=== PATIENT | female | born 1985 | race Caucasian/White ===

== ENCOUNTER 2020-07-06 17:36 | Observation (INO) | payer MEDICAID, SELFPAY ==
[2020-07-06 17:37] VITALS: BP 125/68; PULSE 80; RESP 16; TEMP 36.4; O2SAT 99; BMI 30.9
--- NOTE | 2020-07-06 18:10 | ED.DCSUM_ITS ---
History of Present Illness Chief Complaint: Substance Abuse Informant: Patient Narrative: Patient presents the emergency department asking for detox from amphetamines and fentanyl. Patient states that several years ago her parents . She was with her former significant other with whom she had 3 children with at the time and said they both were using amphetamines per her. She states that during this period she ended up having an affair. He stopped using and she continued to use. She states that he got custody of the children and she is only seeing the children one time in 16 months. She has been a little over 100 days sober but when she was granted visitation she was not allowed to see them so she started using again. She is from the [facility] and has been discussing rehab with a provider down there. Past Medical History - Allergies and Home Meds Allergies/Adverse Reactions: Allergies No Known Allergies Allergy (Verified 07/06/20 17:37) Primary Care Physician: Hugo Doctor,Out of [NON-STAFF] - Review of Systems General: Denies: Chills, Fever, Sweats Eyes: Denies: Visual changes - bilaterally, Diplopia ENT: Denies: Rhinorrhea, Sore throat Cardiovascular: Denies: Chest pain, Palpitations Respiratory: Denies: Dyspnea, Cough, Dyspnea on exertion Gastrointestinal: Reports: Nausea. Denies: Abdominal pain, Vomiting, Diarrhea, Melena, Hematochezia Genitourinary: Denies: Dysuria, Hematuria, Frequency Musculoskeletal: Denies: Back pain, Extremity Pain Skin: Denies: Rash, Wounds Neurological: Reports: Headache. Denies: Weakness, Numbness Psych: Reports: Depression, Anxiety. Denies: Suicidal thoughts, Suicidal ideations Physical Exam Vital Signs/Narrative: Vital Signs Temp Pulse Resp BP Pulse Ox 07/06/20 17:37 97.5 F L 80 16 125/68 H 99 Inital Vital Signs reviewed: Yes General: Well nourished, Well developed, No Acute Distress Head: Normocephalic, Atraumatic Eyes: Perrl, EOMI ENT: Moist mucous membranes, No rhinorrhea Neck: Supple, Nontender Cardiovascular: Regular rate, Regular rhythm, No murmurs Respiratory: No distress, CTA bilaterally, Chest nontender Abdomen: Soft, Nontender, Nondistended, Normal bowel sounds Back: Nontender, Normal Inspection Extremities: Nontender, No edema Skin: Normal color, No rash Neurological: Alert, Oriented x3, Cranial nerves II-XII grossly intact, Normal Strength, Normal Sensation Psychological: Depressed, - - Anxious about going to rehab Diagnostic/Tx/Re-eval Laboratory Last Values WBC 5.1 K/mm3 (4.4-11.0) 07/06/20 19:00 RBC 4.41 M/mm3 (4.2-5.4) 07/06/20 19:00 Hgb 12.9 g/dL (12.0-15.0) 07/06/20 19:00 Hct 41.0 % (37-47) 07/06/20 19:00 MCV 93.0 fL (81-99) 07/06/20 19:00 MCH 29.3 pg (27.0-32.0) 07/06/20 19:00 MCHC 31.5 g/dL (32-36) L 07/06/20 19:00 RDW Std Deviation 44.9 fl (35.1-43.9) H 07/06/20 19:00 RDW Coeff of Roz 13.1 % (11.6-14.6) 07/06/20 19:00 Plt Count 227 K/mm3 (150-450) 07/06/20 19:00 MPV 10.8 fl (6.2-12.0) 07/06/20 19:00 Immature Gran % (Auto) 0.200 % (0.0-0.9) 07/06/20 19:00 Neut % (Auto) 54.1 % (47-70) 07/06/20 19:00 Lymph % (Auto) 32.7 % (19-41) 07/06/20 19:00 [place] % (Auto) 10.4 % (0-10) H 07/06/20 19:00 Eos % (Auto) 2.0 % (0-5) 07/06/20 19:00 Baso % (Auto) 0.6 % (0-1) 07/06/20 19:00 Absolute Neuts (auto) 2.8 X10^3/uL (2.0-7.7) 07/06/20 19:00 Absolute Lymphs (auto) 1.66 X10^3/uL (0.83-4.51) 07/06/20 19:00 Nucleated RBC % 0 % (0-5) 07/06/20 19:00 PT 12.7 SECONDS (11.7-14.9) 07/06/20 19:00 INR 1.0 07/06/20 19:00 Sodium 143 mmol/L (136-145) 07/06/20 19:00 Potassium 3.7 mmol/L (3.5-5.1) 07/06/20 19:00 Chloride 111 mmol/L (98-107) H 07/06/20 19:00 Carbon Dioxide 30.0 mmol/L (21.0-32.0) 07/06/20 19:00 Anion Gap 2 (5-15) L 07/06/20 19:00 BUN 12 mg/dL (7-18) 07/06/20 19:00 Creatinine 0.68 mg/dL (0.55-1.02) 07/06/20 19:00 Estim Creat Clear Calc 97.81 ml/min 07/06/20 19:00 Est GFR (MDRD) Af Amer 125 mL/min (>60) 07/06/20 19:00 Est GFR (MDRD) Non-Af 103 mL/min (>60) 07/06/20 19:00 BUN/Creatinine Ratio 17.6 RATIO (10-20) 07/06/20 19:00 Glucose 103 mg/dL (74-106) 07/06/20 19:00 Calcium 8.3 mg/dL (8.5-10.1) L 07/06/20 19:00 Total Bilirubin 0.40 mg/dL (0.20-1.00) 07/06/20 19:00 AST 104 U/L (15-37) H 07/06/20 19:00 ALT 158 U/L (13-56) H 07/06/20 19:00 Alkaline Phosphatase 91 U/L (45-117) 07/06/20 19:00 Total Protein 7.8 g/dL (6.4-8.2) 07/06/20 19:00 Albumin 3.1 g/dL (3.2-5.0) L 07/06/20 19:00 Globulin 4.7 g/dL (2.2-4.2) H 07/06/20 19:00 Albumin/Globulin Ratio 0.7 RATIO (0.9-2.4) L 07/06/20 19:00 Serum , Qual NEGATIVE Negative 07/06/20 19:00 Urine Opiates Screen NEGATIVE (< 300 ng/mL) 07/06/20 19:20 Urine Methadone Screen NEGATIVE (< 300 ng/mL) 07/06/20 19:20 Ur Barbiturates Screen NEGATIVE (< 200 ng/mL) 07/06/20 19:20 Ur Phencyclidine Scrn NEGATIVE (< 25 ng/mL) 07/06/20 19:20 Ur Amphetamines Screen POSITIVE (<1000 ng/mL) H 07/06/20 19:20 U Methamphetamin-MDMA NEGATIVE (< 500 ng/mL) 07/06/20 19:20 U Benzodiazepines Scrn NEGATIVE (< 200 ng/mL) 07/06/20 19:20 Urine Cocaine Screen NEGATIVE (< 300 ng/mL) 07/06/20 19:20 U Cannabinoids Screen NEGATIVE (< 50 ng/mL) 07/06/20 19:20 Ur Drug Screen Comment 07/06/20 19:20 Ethyl Alcohol < 3.0 mg/dL 07/06/20 19:00 - Medical Decision Making Patient was medically cleared for detox. Dr. Valdez will be down to admit the patient ED Disposition - Plan for ED Patient: Disposition: Acute Care [facility] Diagnosis: Opiate abuse, continuous, Methamphetamine abuse Referrals: [facility] Doctor,Out of [NON-STAFF] -
[2020-07-06 19:34] VITALS: BP 117/68; PULSE 82; RESP 16; TEMP 36.4; O2SAT 98
[2020-07-06] MEDS: Acetaminophen 500 MG Tablet 1000 MG PO (19:35)
[2020-07-06] MEDS: Ondansetron ODT 4 MG Tablet PO (19:35)
[2020-07-06 19:37] LABS: Absolute Lymphocyte Count 1.66 X10^3/uL (0.83-4.51); Absolute Neutrophil Count 2.8 X10^3/uL (2.0-7.7); Basophil# 0.03 X10^3/uL; Basophil% 0.6 % (0-1); Hemoglobin 12.9 g/dL (12.0-15.0); Lymphocyte # 1.66 X10^3/ul (4.0); Lymphocyte % 32.7 % (19-41); Mean Corp Hgb Conc 31.5 g/dL (32-36); Mean Corpuscular Hgb 29.3 pg (27.0-32.0); Mean Platelet Vol. 10.8 fl (6.2-12.0); Monocyte# 0.53 X10^3/uL; Monocyte% 10.4 % (0-10); NRBC Flagged by Analyzer 0 % (0-5); Neutrophil # 2.75 X10^3/uL (2.7-7.7); Neutrophil % 54.1 % (47-70); Platelet Count 227 K/mm3 (150-450); RBC Distribution Width CV 13.1 % (11.6-14.6); RBC Distribution Width SD 44.9 fl (35.1-43.9); Red Blood Count 4.41 M/mm3 (4.2-5.4); White Blood Count 5.1 K/mm3 (4.4-11.0)
[2020-07-06 19:39] LABS: Internal QC Validated? YES +Cl - CLEAR BKGD
[2020-07-06 19:40] LABS: Pregnancy, Serum, hCG Quali. NEGATIVE Negative; Prothrombin Time (Protime)PT. 12.7 SECONDS (11.7-14.9)
[2020-07-06 19:41] LABS: Alcohol, Blood (Medical)-Serum < 3.0 mg/dL
[2020-07-06 19:41] LABS: Amphetamine Urine VISTA POSITIVE (<1000 ng/mL); Barbiturate Urine VISTA NEGATIVE (< 200 ng/mL); Benzodiazepine Urine VISTA NEGATIVE (< 200 ng/mL); Cocaine Urine VISTA NEGATIVE (< 300 ng/mL); Ecstacy Urine VISTA NEGATIVE (< 500 ng/mL); Methadone Urine VISTA NEGATIVE (< 300 ng/mL); PCP Urine VISTA NEGATIVE (< 25 ng/mL); THC Urine VISTA NEGATIVE (< 50 ng/mL); Vista UDS pH Range 6
[2020-07-06 19:42] LABS: ALB/GLOB Ratio 0.7 RATIO (0.9-2.4); AST(SGOT) 104 U/L (15-37); Alanine Aminotransfer ALT/SGPT 158 U/L (13-56); Albumin, Serum 3.1 g/dL (3.2-5.0); Alkaline Phosphatase 91 U/L (45-117); Anion Gap 2 (5-15); BUN 12 mg/dL (7-18); BUN/Creat Ratio 17.6 RATIO (10-20); Calcium,Total 8.3 mg/dL (8.5-10.1); Chloride 111 mmol/L (98-107); Creatinine, Serum 0.68 mg/dL (0.55-1.02); EST Glomerular Filtration Rate 103 mL/min (>60); Est Glom Filt Rate - Afr Amer 125 mL/min (>60); Estimated Creatinine Clearance 97.81 ml/min; Globulin 4.7 g/dL (2.2-4.2); Glucose 103 mg/dL (74-106); Potassium 3.7 mmol/L (3.5-5.1); Protein, Total 7.8 g/dL (6.4-8.2); Sodium Level 143 mmol/L (136-145)
--- NOTE | 2020-07-06 19:56 | PCM.HP.STD ---
Problem List (1) Opiate withdrawal Status: Acute (2) Anxiety and depression Status: Chronic (3) Obesity (BMI 30.0-34.9) Status: Chronic (4) Elevated liver enzymes Status: Chronic (5) Opiate abuse, continuous Status: Chronic (6) Methamphetamine abuse Status: Chronic History of Present Illness Date of Admission: 07/06/20 Chief Complaint: Acute Opiate Withdrawal The patient is a 35 y/o F w/ PMHx: Polysubstance abuse (Heroine, Fentanyl, Methamphetamines only but in the past other substances, IV drug abuse x1 year, indicates that she may have hepatitis C or suspects that she may), Anxiety and Depression, Obesity who presents to the [facility] ED on 07/06/20 w/ noted opiate withdrawal onset starting on day of ED presentation following last dose the day prior with abdominal pain/cramping with associated nausea and dry heaves, generalized body aches and pains, rhinorrhea, headaches, generalized chills and restlessness coupled with fatigue, mild diaphoresis. Patient interested in attaining clean status. Patient has been using amphetamines and opiates for several years and notes in the past she was using with her significant other with whom she has 3 children however he became clean and currently has custody. She noted she had been sober for approximately 100 days and was granted visitation but unfortunately did not get this visit per her report and decided to use again. She is interested in rehab and ongoing clean status to be able to see her children on a regular basis. Work-up in the ED included T 97.5, heart rate 80, BP 125/68, respiratory rate 16, 99% on room air, unremarkable CBC, unremarkable coags, CMP with chloride 111, AST/ALT 104/158, alk phos 91, serum negative, urine drug screen with positive amphetamines, ethyl alcohol level less than 3. In the ED patient ministered Zofran and Tylenol therapy. Past Medical History Past Medical History (Chronic Problems): Chronic Problems Opiate abuse, continuous (Chronic) Methamphetamine abuse (Chronic) Anxiety and depression (Chronic) Obesity (BMI 30.0-34.9) (Chronic) Elevated liver enzymes (Chronic) Allergies No Known Allergies Allergy (Verified 07/06/20 17:37) Home Medications: Ambulatory Orders Medication Instructions Recorded NK 07/06/20 Surgical History: cholecystectomy, - - History of ectopic with single fallopian tube removal. Psychiatric History: Anxiety, Depression [employer] History: ectopic Lives: Alone Smoking Status: Never smoker Tobacco Use: Non-smoker Alcohol: None Drugs: Cocaine, - - Fentanyl, heroine, meth currently although primarily fentanyl and methamphetamines noting fentanyl daily at least 2 bags of unclear specific amount and methamphetamine intermittently. She notes she has been doing IV drugs for at least 1 year. - *Family History Maternal History Items: - - Patient notes that her mother passed secondary to possible overdose unclear if whether intentional or not but history of depression. Patient indicates that her mother had several issues with her father. Paternal History Items: Cancer - Patient's father passed secondary to rare skin cancer she notes. Review of Systems Constitutional: Reports: Anorexia, Chills, Malaise, Weakness, Fatigue. Denies: Fever, Weight Change HEENT: Reports: Head Aches, Nasal Congestion, Sinus Congestion. Denies: Sinus Drainage Cardiovascular: Denies: Chest Pain, Palpitations Respiratory: Denies: Cough, Shortness of Breath, Shortness of breath at rest, Shortness of breath upon exertion, Sputum production Gastrointestinal: Reports: Abdominal Pain, Nausea, Vomiting. Denies: Constipation, Diarrhea Genitourinary: Denies: Dysuria Musculoskeletal: Denies: Joint Pain, Joint Tenderness Skin: Reports: Skin Changes. Denies: Rash, Wounds Neurological: Denies: Numbness, Tingling, Focal weakness Psychiatric: Reports: Anxiety, Depression. Denies: Homicidal Ideations, Suicidal Ideations Endocrine: Reports: Heat/ Cold Intolerance Hematologic/ Lymphatic: Denies: Easy Bruising, Easy Bleeding VTE Information - Inpt Only VTE Present on Admission: No VTE Mechan Device Prophylaxis: None VTE Pharm Prophylaxis ordered?: No Reason prophylaxis not ordered:: Treatment Not Indicated Patient Problems: Active and Suspected Problems Opiate withdrawal (Acute) Subjective: Patient seated upright in the ED bed, tearful with discussions, notes ongoing headache, nausea and abdominal cramping currently. Objective: Physical Examination: General: awake, alert, oriented x 3 and cooperative, seated upright in the ED bed, fatigued, mildly restless, tearful. Skin: normal color, turgor, no icterus, cyanosis except notable diffuse extremity and facial picks regions, no infection apparent. HEENT: AT/NC, EOMI, PERRLA, dry MM, no carotid bruits or JVD noted. Lungs: CTA bilaterally, moderate effort, mild decrease BL bases, no rales, ronchi or wheezing. Heart: Regular rate and rhythm; no gallop, rub audible. Abdomen: soft, mild generalized discomfort to palpation, ND, normal BS, no HSM. Extremities: no cyanosis, clubbing, or edema. Neurological: patient awake, alert, oriented x 3; cognitive function intact; pupils equally reactive to light and accomodation; cranial nerves II-XII grossly normal, moving all 4 extremities, no focal deficits, strength mildly to moderately globally Yvette secondary to acute presentation with withdrawal. Psychiatric: affect appears fatigued, yawning occasionally, restless, tearful with evidence of anxiety and depression. - Physical Exam Vitals/I&O's: Vital Signs Temp Pulse Resp BP Pulse Ox 97.6 F L 82 16 117/68 98 07/06/20 19:34 07/06/20 19:34 07/06/20 19:34 07/06/20 19:34 07/06/20 19:34 Oxygen Delivery Method Room Air Weight: 180 lb Body Mass Index (BMI) 30.9 Laboratory Results 07/06/20 19:00: WBC 5.1, RBC 4.41, Hgb 12.9, Hct 41.0, MCV 93.0, MCH 29.3, MCHC 31.5 L, RDW Std Deviation 44.9 H, RDW Coeff of Roz 13.1, Plt Count 227, MPV 10.8, Immature Gran % (Auto) 0.200, Neut % (Auto) 54.1, Lymph % (Auto) 32.7, [place] % (Auto) 10.4 H, Eos % (Auto) 2.0, Baso % (Auto) 0.6, Absolute Neuts (auto) 2.8, Absolute Lymphs (auto) 1.66, Nucleated RBC % 0 07/06/20 19:00: PT 12.7, INR 1.0 07/06/20 19:00: Sodium 143, Potassium 3.7, Chloride 111 H, Carbon Dioxide 30.0, Anion Gap 2 L, BUN 12, Creatinine 0.68, Estim Creat Clear Calc 97.81, Est GFR (MDRD) Af Amer 125, Est GFR (MDRD) Non-Af 103, BUN/Creatinine Ratio 17.6, Glucose 103, Calcium 8.3 L, Total Bilirubin 0.40, AST 104 H, ALT 158 H, Alkaline Phosphatase 91, Total Protein 7.8, Albumin 3.1 L, Globulin 4.7 H, Albumin/Globulin Ratio 0.7 L 07/06/20 19:00: Ethyl Alcohol < 3.0 07/06/20 19:00: Serum , Qual NEGATIVE 07/06/20 19:20: Urine Opiates Screen NEGATIVE, Urine Methadone Screen NEGATIVE, Ur Barbiturates Screen NEGATIVE, Ur Phencyclidine Scrn NEGATIVE, Ur Amphetamines Screen POSITIVE H, U Methamphetamin-MDMA NEGATIVE, U Benzodiazepines Scrn NEGATIVE, Urine Cocaine Screen NEGATIVE, U Cannabinoids Screen NEGATIVE, Ur Drug Screen Comment Assessment/Plan All Active Problems Opiate withdrawal (Acute) The patient is a 35 y/o F w/ PMHx: Polysubstance abuse (Heroine, Fentanyl, Methamphetamines), Anxiety and Depression, Obesity who presents to the [facility] ED on 07/06/20 w/ noted opiate withdrawal onset starting on day of ED presentation following last dose the day prior. 1. Acute Opiate Withdrawal: Will admit to [facility], routine labs including CBC, CMP, urine for drug screen post testing obtained in the ED with likely suspected chronic liver function elevations, will initiate and continue on protocol with tapering course of Subutex, as needed tylenol, ibuprofen, bowel regimen, gabapentin, Bentyl, Vistaril, methocarbamol, clonidine, PRN nightly trazodone for insomnia, IV fluids, IV antiemetics. Once patient clinically improved and completion of taper nearing will plan consultation with case management for transition to next level of rehabilitation care. From review of this patient and discussion she would benefit from residential treatment following inpatient withdrawal treatment. 2. Polysubstance Abuse, noted liver function elevations: We will obtain HIV and hepatitis panel especially given patient intent on improving her healthcare status. If she is hepatitis positive unfortunately she would not be a candidate for treatment until she has been clean and sober for at least 6 months and attends meetings as well as ongoing counseling with negative drug screening. Encouraged PCP establishment and follow-up. 3. Anxiety and depression: Likely contributing to her presentation, would likely benefit greatly from aggressive therapy and possible medication considerations. Case management consulted for aggressive discharge planning. 4. Obesity: Weight loss and lifestyle changes encouraged. 5. DVT prophylaxis: Low risk, encourage ambulation. Inpatient E&M: 03554 Init Hosp L3
[2020-07-06 20:09] VITALS: BMI 30.9
--- NOTE | 2020-07-06 20:21 | CM.ED ---
Social Work Consult: Substance Abuse Informant: Dr. Her Met with patient in room. Introduced self and social media marketing manager role. Patient agreeable to speaking with this social media marketing manager. Patient is seeking medical management of withdrawal symptoms. Patient reports substance of choice is Fentanyl, Heroine, and Meth. Patient reports to have been in recovery before and sober living really helped me. Patient reports to have three children that patient does not have custody of and is working towards being able to have visitations. Patient verbally agreeing to [facility] contract. Patient questions answered. Telephone call to Juan Pablo Andre. Juan Pablo updated on patient admission tomorrow. Juan Pablo plans to see patient tomorrow. Christine DODSON, MALCOM
[2020-07-06 20:36] VITALS: BP 114/72; PULSE 72; RESP 16; TEMP 36.7; O2SAT 98
[2020-07-06 21:05] VITALS: BMI 31.8
[2020-07-06 21:08] VITALS: BP 118/59; PULSE 72; RESP 16; TEMP 37; O2SAT 99
[2020-07-06] MEDS: Lactated Ringers 1,000 ML 125 ML IV (21:34)
[2020-07-06] MEDS: 0.9% Saline Lock 10 ML Syringe IV (21:35)
[2020-07-06 22:05] VITALS: O2SAT 99
[2020-07-06 22:07] LABS: HIV - WCH Non-Reactive (Nonreactive)
[2020-07-06] MEDS: Famotidine 20 MG Tablet PO (22:32)
[2020-07-07 00:42] VITALS: BP 121/52; PULSE 62; RESP 16; TEMP 36.4; O2SAT 98
[2020-07-07 02:42] LABS: Hepatitis B Surface Antibody Reactive; Hepatitis B Surface Antigen Non-Reactive (Nonreactive)
[2020-07-07 02:52] LABS: Hepatitis C Antibody Preliminary Reactive (Nonreactive)
[2020-07-07 03:44] VITALS: BP 103/52; PULSE 67; RESP 16; TEMP 36.5; O2SAT 100
[2020-07-07] MEDS: Buprenorphine HCl 2 MG TAB.SUBL SL ×3 (03:45→18:49)
--- NOTE | 2020-07-07 07:20 | PCM.PN.HOSP ---
Patient Problems: Active and Suspected Problems Opiate withdrawal (Acute) Subjective: Patient seen and examined. She has been managed for acute opioid withdrawal. She complained of some tremors and tingling, but denied any other complaints. Review of systems otherwise negative. She has remained hemodynamically stable. Vitals/I&O's: Vital Signs Temp Pulse Resp BP Pulse Ox 97.7 F L 67 16 103/52 L 100 07/07/20 03:44 07/07/20 03:44 07/07/20 03:44 07/07/20 03:44 07/07/20 03:44 Oxygen Delivery Method Room Air Weight: 185 lb 10.067 oz Body Mass Index (BMI) 31.8 Intake and Output for Last 24 Hours 07/05/20 07/06/20 07/07/20 23:59 23:59 23:59 Intake Total 355 / 355 1800 / 1800 Balance 355 / 355 1800 / 1800 General: Alert, Oriented x3, Cooperative HEENT: Atraumatic, PERRLA, EOMI, Normocephalic Oral: Moist Mucosa Neck: Supple, No JVD, Negative Carotid Bruits Lungs: Clear to auscultation, Normal air movement Cardiovascular: Regular rate, Regular Rhythm, Normal S1, Normal S2, No murmurs Abdomen: Bowel Sounds Present, Soft, Non Tender, Non-Distended, No Hepato-splenomegaly Extremities: No clubbing, No cyanosis, No edema, Capillary Refill Less than 3 Seconds Skin: No rashes, No breakdown Musculoskeletal: No Tenderness to Palpation of Joints or Extremities Lymphatic: No Cervical, Supraclavicular, or Inguinal Adenopathy Neurological: Cranial nerves II-XII grossly intact, Neuro grossly intact, Motor Exam 5/5 strength throughout Psych/Mental Status: Normal Affect, Appropriate, Alert and oriented to time, place, person, mood and affect Laboratory Results 07/06/20 19:00: WBC 5.1, RBC 4.41, Hgb 12.9, Hct 41.0, MCV 93.0, MCH 29.3, MCHC 31.5 L, RDW Std Deviation 44.9 H, RDW Coeff of Roz 13.1, Plt Count 227, MPV 10.8, Immature Gran % (Auto) 0.200, Neut % (Auto) 54.1, Lymph % (Auto) 32.7, [place] % (Auto) 10.4 H, Eos % (Auto) 2.0, Baso % (Auto) 0.6, Absolute Neuts (auto) 2.8, Absolute Lymphs (auto) 1.66, Nucleated RBC % 0 07/06/20 19:00: PT 12.7, INR 1.0 07/06/20 19:00: Sodium 143, Potassium 3.7, Chloride 111 H, Carbon Dioxide 30.0, Anion Gap 2 L, BUN 12, Creatinine 0.68, Estim Creat Clear Calc 97.81, Est GFR (MDRD) Af Amer 125, Est GFR (MDRD) Non-Af 103, BUN/Creatinine Ratio 17.6, Glucose 103, Calcium 8.3 L, Total Bilirubin 0.40, AST 104 H, ALT 158 H, Alkaline Phosphatase 91, Total Protein 7.8, Albumin 3.1 L, Globulin 4.7 H, Albumin/Globulin Ratio 0.7 L 07/06/20 19:00: Ethyl Alcohol < 3.0 07/06/20 19:00: Serum , Qual NEGATIVE 07/06/20 19:00: Hep Bs Antigen Non-Reactive, Hep Bs Antibody Reactive, Hepatitis C Antibody Preliminary Reactive, HIV 1&2 Antibody Non-Reactive 07/06/20 19:20: Urine Opiates Screen NEGATIVE, Urine Methadone Screen NEGATIVE, Ur Barbiturates Screen NEGATIVE, Ur Phencyclidine Scrn NEGATIVE, Ur Amphetamines Screen POSITIVE H, U Methamphetamin-MDMA NEGATIVE, U Benzodiazepines Scrn NEGATIVE, Urine Cocaine Screen NEGATIVE, U Cannabinoids Screen NEGATIVE, Ur Drug Screen Comment 07/07/20 05:55: Hepatitis A IgM Ab Pending 07/07/20 05:55: Sodium Pending, Potassium Pending, Chloride Pending, Carbon Dioxide Pending, Anion Gap Pending, BUN Pending, Creatinine Pending, Est GFR (MDRD) Af Amer Pending, Est GFR (MDRD) Non-Af Pending, BUN/Creatinine Ratio Pending, Glucose Pending, Calcium Pending, Total Bilirubin Pending, AST Pending, ALT Pending, Alkaline Phosphatase Pending, Total Protein Pending, Albumin Pending Current Medications Acetaminophen (Tylenol) 500 mg PO Q4H PRN PRN PRN Reason: Temp > 100.4 F Al Hydroxide/Mg Hydroxide (Mylanta Ii) 30 ml PO Q6H PRN PRN PRN Reason: dyspesia Albuterol Sulfate (Ventolin Aerosols) 2.5 mg INHALATION Q2H PRN PRN PRN Reason: Dyspnea, wheezing Bisacodyl (Dulcolax) 10 mg RECTAL DAILY PRN PRN Reason: Constipation Buprenorphine HCl (Buprenorphine Hcl) 4 mg SL Q8H [facility]; Taper Stop: 07/10/20 03:29 Last Admin: 07/07/20 03:45 Dose: 4 mg Documented by: Clonidine (Catapres) 0.1 mg PO Q8H PRN PRN PRN Reason: RESTLESSNESS Dicyclomine HCl (Bentyl) 20 mg PO Q6H PRN PRN PRN Reason: Abdominal Discomfort Famotidine (Pepcid) 20 mg PO BID [facility] Last Admin: 07/06/20 22:32 Dose: 20 mg Documented by: Gabapentin (Neurontin) 300 mg PO Q8H PRN PRN PRN Reason: moderate to severe anxiety Hydralazine HCl (Apresoline Iv) 10 mg IV Q4H PRN PRN PRN Reason: SBP > 160 Hydroxyzine Pamoate (Vistaril Pamoate Capsule) 50 mg PO Q6H PRN PRN PRN Reason: mild anxiety Ibuprofen (Motrin) 600 mg PO Q8H PRN PRN PRN Reason: Pain Score 1-10/10 Loperamide HCl (Imodium) 2 mg PO Q4H PRN PRN PRN Reason: LOOSE STOOLS Methocarbamol (Methocarbamol) 1,500 mg PO Q6H PRN PRN PRN Reason: MUSCLE SPASM Ondansetron HCl (Zofran Odt) 8 mg PO Q8H PRN PRN PRN Reason: NAUSEA Senna (Senokot) 2 tablet PO QHS PRN PRN PRN Reason: Constipation Sodium Chloride () 10 - 40 ml IV UD PRN PRN Reason: SALINE FLUSH Last Admin: 07/06/20 21:35 Dose: 10 ml Documented by: Trazodone HCl (Desyrel) 100 mg PO QHS PRN PRN PRN Reason: INSOMNIA STROKE Vital Signs/Narrative: Vital Signs Temp Pulse Resp BP Pulse Ox 07/07/20 03:44 97.7 F L 67 16 103/52 L 100 Medical Necessity - Tobacco Use Smoking Status: Never smoker Tobacco Use: Non-smoker Assessment/Plan All Active Problems Opiate withdrawal (Acute) #Acute opioid withdrawal on opioid withdrawal protocol with buprenorphine monitor CINA score #Elevated liver enzymes AST and ALT were mildly elevated. hepatitis screen positive for hep C antibodies will need follow up with gastroenterology on outpatient basis # Anxiey and depression: self reported, not on any meds. will need follow up with PCP on outpatient basis. DVT prophylaxis: low risk, encouraged to ambulate Inpatient E&M: 46225 Subs Hosp L2
[2020-07-07 07:36] VITALS: BP 116/66; PULSE 84; RESP 14; TEMP 36.6; O2SAT 98
[2020-07-07] MEDS: hydrOXYzine PAM 25 MG Capsule 50 MG PO ×2 (07:42→15:20)
[2020-07-07] MEDS: Famotidine 20 MG Tablet PO ×2 (07:42→21:04)
[2020-07-07] MEDS: Methocarbamol 750 MG Tablet 1500 MG PO ×2 (07:42→15:20)
[2020-07-07 08:02] LABS: ALB/GLOB Ratio 0.7 RATIO (0.9-2.4); AST(SGOT) 89 U/L (15-37); Alanine Aminotransfer ALT/SGPT 139 U/L (13-56); Albumin, Serum 2.8 g/dL (3.2-5.0); Alkaline Phosphatase 96 U/L (45-117); Anion Gap 6 (5-15); BUN 11 mg/dL (7-18); BUN/Creat Ratio 18.9 RATIO (10-20); Chloride 106 mmol/L (98-107); Creatinine, Serum 0.58 mg/dL (0.55-1.02); EST Glomerular Filtration Rate 124 mL/min (>60); Est Glom Filt Rate - Afr Amer 150 mL/min (>60); Estimated Creatinine Clearance 114.68 ml/min; Glucose 89 mg/dL (74-106); Potassium 3.8 mmol/L (3.5-5.1); Protein, Total 6.8 g/dL (6.4-8.2); Sodium Level 142 mmol/L (136-145)
[2020-07-07 11:16] VITALS: BP 99/51; PULSE 68; RESP 12; TEMP 36.2; O2SAT 98
[2020-07-07 15:16] VITALS: BP 102/55; PULSE 61; RESP 14; TEMP 37; O2SAT 98
[2020-07-07] MEDS: 0.9% Saline Lock 10 ML Syringe IV (15:20)
[2020-07-07 21:21] VITALS: BP 99/46; PULSE 75; RESP 18; TEMP 36.4; O2SAT 98
[2020-07-08 03:49] VITALS: BP 110/48; PULSE 69; RESP 18; TEMP 37.1; O2SAT 98
[2020-07-08] MEDS: Buprenorphine HCl 2 MG TAB.SUBL SL ×3 (03:52→18:41)
[2020-07-08] MEDS: Methocarbamol 750 MG Tablet 1500 MG PO ×2 (03:54→20:56)
[2020-07-08 07:02] VITALS: O2SAT 98
--- NOTE | 2020-07-08 07:24 | PN_ITS ---
Patient Problems: Active and Suspected Problems Opiate withdrawal (Acute) Subjective: Patient seen and examined. No active events overnight. She complains of mild swelling in her LUE, where the IV canula is inserted. She also complains of some tingling in her right hand. She is tolerating detox with buprenorphine well. Review of systems otherwise negative. Vitals have remained stable. Vitals/I&O's: Vital Signs Temp Pulse Resp BP Pulse Ox 98.7 F 69 18 110/48 L 98 07/08/20 03:49 07/08/20 03:49 07/08/20 03:49 07/08/20 03:49 07/08/20 03:49 Oxygen Delivery Method Room Air Weight: 185 lb 10.067 oz Body Mass Index (BMI) 31.8 Intake and Output for Last 24 Hours 07/06/20 07/07/20 07/08/20 23:59 23:59 23:59 Intake Total 355 / 355 3160 / 3160 360 / 360 Balance 355 / 355 3160 / 3160 360 / 360 General: Alert, Oriented x3, Cooperative HEENT: Atraumatic, PERRLA, EOMI, Normocephalic Oral: Moist Mucosa Neck: Supple, No JVD, Negative Carotid Bruits Lungs: Clear to auscultation, Normal air movement Cardiovascular: Regular rate, Regular Rhythm, Normal S1, Normal S2, No murmurs Abdomen: Bowel Sounds Present, Soft, Non Tender, Non-Distended, No Hepato- splenomegaly Extremities: No clubbing, No cyanosis, No edema, Capillary Refill Less than 3 Seconds Skin: No rashes, No breakdown Musculoskeletal: No Tenderness to Palpation of Joints or Extremities; Phalen's and Tinel's sign negative for carpal tunnel syndrome Lymphatic: No Cervical, Supraclavicular, or Inguinal Adenopathy Neurological: Cranial nerves II-XII grossly intact, Neuro grossly intact, Motor Exam 5/5 strength throughout Psych/Mental Status: Normal Affect, Appropriate, Alert and oriented to time, place, person, mood and affect Laboratory Results 07/07/20 05:55: Sodium 142, Potassium 3.8, Chloride 106, Carbon Dioxide 30.0, Anion Gap 6, BUN 11, Creatinine 0.58, Estim Creat Clear Calc 114.68, Est GFR (MDRD) Af Amer 150, Est GFR (MDRD) Non-Af 124, BUN/Creatinine Ratio 18.9, Glucose 89, Calcium 8.0 L, Total Bilirubin 0.50, AST 89 H, ALT 139 H, Alkaline Phosphatase 96, Total Protein 6.8, Albumin 2.8 L, Globulin 4.0, Albumin/Globulin Ratio 0.7 L Current Medications Acetaminophen (Tylenol) 500 mg PO Q4H PRN PRN PRN Reason: Temp > 100.4 F Al Hydroxide/Mg Hydroxide (Mylanta Ii) 30 ml PO Q6H PRN PRN PRN Reason: dyspesia Albuterol Sulfate (Ventolin Aerosols) 2.5 mg INHALATION Q2H PRN PRN PRN Reason: Dyspnea, wheezing Bisacodyl (Dulcolax) 10 mg RECTAL DAILY PRN PRN Reason: Constipation Buprenorphine HCl (Buprenorphine Hcl) 2 mg SL Q8H RUPA; Taper Stop: 07/10/20 03:29 Last Admin: 07/08/20 03:52 Dose: 2 mg Documented by: Clonidine (Catapres) 0.1 mg PO Q8H PRN PRN PRN Reason: RESTLESSNESS Dicyclomine HCl (Bentyl) 20 mg PO Q6H PRN PRN PRN Reason: Abdominal Discomfort Famotidine (Pepcid) 20 mg PO BID RUPA Last Admin: 07/07/20 21:04 Dose: 20 mg Documented by: Gabapentin (Neurontin) 300 mg PO Q8H PRN PRN PRN Reason: moderate to severe anxiety Hydralazine HCl (Apresoline Iv) 10 mg IV Q4H PRN PRN PRN Reason: SBP > 160 Hydroxyzine Pamoate (Vistaril Pamoate Capsule) 50 mg PO Q6H PRN PRN PRN Reason: mild anxiety Last Admin: 07/07/20 15:20 Dose: 50 mg Documented by: Ibuprofen (Motrin) 600 mg PO Q8H PRN PRN PRN Reason: Pain Score 1-10/10 Loperamide HCl (Imodium) 2 mg PO Q4H PRN PRN PRN Reason: LOOSE STOOLS Methocarbamol (Methocarbamol) 1,500 mg PO Q6H PRN PRN PRN Reason: MUSCLE SPASM Last Admin: 07/08/20 03:54 Dose: 1,500 mg Documented by: Ondansetron HCl (Zofran Odt) 8 mg PO Q8H PRN PRN PRN Reason: NAUSEA Senna (Senokot) 2 tablet PO QHS PRN PRN PRN Reason: Constipation Sodium Chloride () 10 - 40 ml IV UD PRN PRN Reason: SALINE FLUSH Last Admin: 07/07/20 15:20 Dose: 10 ml Documented by: Trazodone HCl (Desyrel) 100 mg PO QHS PRN PRN PRN Reason: INSOMNIA STROKE Vital Signs/Narrative: Vital Signs Temp Pulse Resp BP Pulse Ox 07/08/20 03:49 98.7 F 69 18 110/48 L 98 Medical Necessity - Tobacco Use Smoking Status: Never smoker Tobacco Use: Non-smoker Assessment/Plan All Active Problems Opiate withdrawal (Acute) #Acute opioid withdrawal * on opioid withdrawal protocol with buprenorphine * monitor CINA score * #Elevated liver enzymes * AST and ALT were mildly elevated. * hepatitis screen positive for hep C antibodies * will need follow up with gastroenterology on outpatient basis * # Anxiey and depression: self reported, not on any meds. will need follow up with PCP on outpatient basis. DVT prophylaxis: low risk, encouraged to ambulate Inpatient E&M: 22581 Subs Hosp L2
[2020-07-08] MEDS: hydrOXYzine PAM 25 MG Capsule 50 MG PO (08:39)
[2020-07-08] MEDS: Ibuprofen 600 MG Tablet PO (08:40)
[2020-07-08] MEDS: Famotidine 20 MG Tablet PO ×2 (08:40→20:56)
[2020-07-08 11:55] VITALS: BP 121/63; PULSE 89; RESP 16; TEMP 37; O2SAT 97
[2020-07-08 17:16] VITALS: BP 114/60; PULSE 61; RESP 18; TEMP 36.6; O2SAT 97
[2020-07-08] MEDS: Gabapentin 300 MG Capsule PO (20:56)
[2020-07-08] MEDS: Ondansetron ODT 4 MG Tablet 8 MG PO (20:56)
[2020-07-08] MEDS: traZODone 100 MG Tablet PO (20:56)
[2020-07-09 00:30] LABS: Hepatitis A IgM Antibody Negative (Negative)
[2020-07-09 03:36] VITALS: BP 113/48; PULSE 104; RESP 16; TEMP 36.9; O2SAT 97
[2020-07-09] MEDS: Ibuprofen 600 MG Tablet PO ×2 (03:42→15:14)
[2020-07-09] MEDS: Dicyclomine 10 MG Capsule 20 MG PO (03:42)
[2020-07-09] MEDS: Methocarbamol 750 MG Tablet 1500 MG PO ×2 (03:43→20:39)
[2020-07-09] MEDS: cloNIDine HCl 0.1 MG Tablet PO (03:43)
[2020-07-09] MEDS: Buprenorphine HCl 2 MG TAB.SUBL SL ×2 (03:43→15:06)
[2020-07-09] MEDS: hydrOXYzine PAM 25 MG Capsule 50 MG PO (03:43)
[2020-07-09 08:53] VITALS: BP 97/51; PULSE 70; RESP 16; TEMP 36.8; O2SAT 99
[2020-07-09] MEDS: Famotidine 20 MG Tablet PO ×2 (08:55→20:39)
--- NOTE | 2020-07-09 11:28 | ADDICTION ---
This residential mortgage underwriter met with patient to discuss discharge planning. Patient wants Suboxone and residential treatment. This residential mortgage underwriter informed patient that if she were to engage with [facility], she would be expected to maintain sobriety without Suboxone for 30 days, while in residential treatment, before meeting with medical team for suboxone. Patient reported that this doesn't work for her. This residential mortgage underwriter called the following Residential treatment facilities to coordinate: [facility] for [facility], left message requesting call back. [facility], No open beds [facility], No Suboxone during [facility]idential [facility], no Suboxone, uses [facility]. This residential mortgage underwriter will attempt to find patient placement at Residential facility who allows Suboxone. load manager informed.
--- NOTE | 2020-07-09 13:19 | CHAPLAIN ---
Type of Pastoral Visit _x__ Initial Visit ___ Follow-up Visit ___ On-call Visit ___ General Patient Visit ___ Spiritual Assessment ___ Family Conference ___ Bereavement ___ Rapid Response ___ Code Blue ___ Other (describe below) Pastoral Care Referral From _x__ Patient ___ Family ___ Nurse ___ Physician ___ Card Checker ___ Keg Raiser ___ Other (describe below) Sacrament/Intervention ___ Active listening ___ Anointing ___ Quaker ___ Bereavement ___ Communion ___ Nellie exploration ___ ___ Life review ___ Prayer ___ Reconciliation ___ Sacrament of Sick _x__ Supportive presence ___ Wedding ___ Other (describe below) Pastoral Comments patient easily awakened from apparent nap however declined the visit due to not feeling well; pt agreed for another attempt at another time
--- NOTE | 2020-07-09 14:54 | PCM.PN.HOSP ---
Patient Problems: Active and Suspected Problems Opiate withdrawal (Acute) Subjective: Doing well, no issues overnight. She would like to go to a inpatient rehab facility that does chronic Suboxone treatment. Vitals/I&O's: Vital Signs Temp Pulse Resp BP Pulse Ox 98.2 F 70 16 97/51 L 99 07/09/20 08:53 07/09/20 08:53 07/09/20 08:53 07/09/20 08:53 07/09/20 08:53 Oxygen Delivery Method Room Air Weight: 185 lb 10.067 oz Body Mass Index (BMI) 31.8 Intake and Output for Last 24 Hours 07/07/20 07/08/20 07/09/20 23:59 23:59 23:59 Intake Total 3160 / 3160 860 / 860 1000 / 1000 Balance 3160 / 3160 860 / 860 1000 / 1000 General: Alert, Oriented x3, Cooperative, No apparent distress HEENT: Atraumatic, PERRLA, EOMI, Normocephalic Oral: Moist Mucosa Neck: Supple, No JVD Lungs: Clear to auscultation, Normal air movement, No rhonchi, No wheeze, No rales Cardiovascular: Regular rate, Regular Rhythm, Normal S1, Normal S2, No murmurs Abdomen: Soft, Non Tender, Non-Distended, No Hepato-splenomegaly Extremities: No edema, Capillary Refill Less than 3 Seconds Skin: No rashes, No breakdown Neurological: Neuro grossly intact, Sensory exam intact to light touch and pain Psych/Mental Status: Normal Affect, Appropriate Laboratory Results 07/07/20 05:55: Hepatitis A IgM Ab Negative, Hepatitis A Ab Total Cancelled, Hepatitis A Interp Cancelled, Hep Bs Antigen Cancelled, Hep Bs Ag Confirmation Cancelled, Hep B Surface Ag Comm Cancelled, Hep Bs Antibody Interp Cancelled, Hep B Core Total Ab Cancelled, Hep B Core IgM Ab Cancelled, Hepatitis C Ab Confirm Cancelled, Hep C Confirm Com 1 Cancelled Current Medications Acetaminophen (Tylenol) 500 mg PO Q4H PRN PRN PRN Reason: Temp > 100.4 F Al Hydroxide/Mg Hydroxide (Mylanta Ii) 30 ml PO Q6H PRN PRN PRN Reason: dyspesia Albuterol Sulfate (Ventolin Aerosols) 2.5 mg INHALATION Q2H PRN PRN PRN Reason: Dyspnea, wheezing Bisacodyl (Dulcolax) 10 mg RECTAL DAILY PRN PRN Reason: Constipation Buprenorphine HCl (Buprenorphine Hcl) 2 mg SL Q12H [facility]; Taper Stop: 07/10/20 03:29 Last Admin: 07/09/20 03:43 Dose: 2 mg Documented by: Clonidine (Catapres) 0.1 mg PO Q8H PRN PRN PRN Reason: RESTLESSNESS Last Admin: 07/09/20 03:43 Dose: 0.1 mg Documented by: Dicyclomine HCl (Bentyl) 20 mg PO Q6H PRN PRN PRN Reason: Abdominal Discomfort Last Admin: 07/09/20 03:42 Dose: 20 mg Documented by: Famotidine (Pepcid) 20 mg PO BID [facility] Last Admin: 07/09/20 08:55 Dose: 20 mg Documented by: Gabapentin (Neurontin) 300 mg PO Q8H PRN PRN PRN Reason: moderate to severe anxiety Last Admin: 07/08/20 20:56 Dose: 300 mg Documented by: Hydroxyzine Pamoate (Vistaril Pamoate Capsule) 50 mg PO Q6H PRN PRN PRN Reason: mild anxiety Last Admin: 07/09/20 03:43 Dose: 50 mg Documented by: Ibuprofen (Motrin) 600 mg PO Q8H PRN PRN PRN Reason: Pain Score 1-10/10 Last Admin: 07/09/20 03:42 Dose: 600 mg Documented by: Loperamide HCl (Imodium) 2 mg PO Q4H PRN PRN PRN Reason: LOOSE STOOLS Methocarbamol (Methocarbamol) 1,500 mg PO Q6H PRN PRN PRN Reason: MUSCLE SPASM Last Admin: 07/09/20 03:43 Dose: 1,500 mg Documented by: Ondansetron HCl (Zofran Odt) 8 mg PO Q8H PRN PRN PRN Reason: NAUSEA Last Admin: 07/08/20 20:56 Dose: 8 mg Documented by: Senna (Senokot) 2 tablet PO QHS PRN PRN PRN Reason: Constipation Trazodone HCl (Desyrel) 100 mg PO QHS PRN PRN PRN Reason: INSOMNIA Last Admin: 07/08/20 20:56 Dose: 100 mg Documented by: Medical Necessity - Tobacco Use Smoking Status: Never smoker Tobacco Use: Non-smoker Assessment/Plan All Active Problems Opiate withdrawal (Acute) 1. Acute opiate withdrawal -Continue with the opiate withdrawal protocol -Will attempt to get her placed a inpatient rehab facility, there was a spot available today but that was in the facility did not do Suboxone. 2. Elevated liver enzymes -Hepatitis C screen was positive therefore she will need to follow-up with gastroenterology as an outpatient -Advised that if she does not discontinue her IV drug use and she would not qualify for treatment for her hep C DVT: Low risk Inpatient E&M: 13601 Subs Hosp L2
[2020-07-09 14:55] VITALS: BP 91/46; PULSE 62; RESP 18; TEMP 36.7; O2SAT 99
[2020-07-09 20:32] VITALS: BP 105/53; PULSE 59; RESP 18; TEMP 36.4; O2SAT 98
[2020-07-09] MEDS: Gabapentin 300 MG Capsule PO (20:39)
[2020-07-09] MEDS: traZODone 100 MG Tablet PO (20:39)
[2020-07-10 06:00] VITALS: BP 110/46; PULSE 62; RESP 14; TEMP 36.7; O2SAT 97
--- NOTE | 2020-07-10 07:42 | DCINST_ITS ---
- Discharge Diagnoses Current Active Problems: Current Active and Chronic Problems Opiate abuse, continuous (Chronic) Methamphetamine abuse (Chronic) Anxiety and depression (Chronic) Obesity (BMI 30.0-34.9) (Chronic) Opiate withdrawal (Acute) Elevated liver enzymes (Chronic) You will use the following diet at home:: Regular Your food should be the consistency of: Regular Your liquids should be the consistency of: Regular/Thin Discharge Activity: Return to Normal Activity Call your doctor if you observe: Fever of 101 or Higher, Shortness of breath, Dizziness, Fainting spells, Swelling in the ankles, Chest pain, Increased palpitations (irregular heartbeat) Allergies/Adverse Reactions: Allergies No Known Allergies Allergy (Verified 07/06/20 17:37) Medications to take at Discharge NK 07/06/20 Primary Care Physician: Hugo Alexander,Out of [NON-STAFF] - Please follow up with your Primary Care Physician in: 3-5 days Test Results: Test results from this visit will be discussed in further detail at your follow- up appointment, if applicable. Please Follow Up With: Rehab, inpt or outpt
[2020-07-10 08:00] VITALS: PULSE 64; RESP 18
--- NOTE | 2020-07-10 10:04 | ADDICTION ---
This card writer hand met with patient in her room to discuss d/c plans. Patient reported amiability to [facility]. This card writer hand facilitated call to residential and was informed that they are full. Patient agreed to [facility] Residential treatment. This card writer hand has placed referral with Admissions department at [facility] and will update client and [facility] staff if she is able to admit.
[2020-07-10] MEDS: Gabapentin 300 MG Capsule PO ×2 (10:15→21:38)
[2020-07-10] MEDS: Famotidine 20 MG Tablet PO ×2 (10:15→21:38)
[2020-07-10 12:00] VITALS: BP 103/53; PULSE 62; RESP 18; TEMP 36.2; O2SAT 98
--- NOTE | 2020-07-10 13:43 | PCM.PN.HOSP ---
Patient Problems: Active and Suspected Problems Opiate withdrawal (Acute) Subjective: Doing well, no issues overnight Vitals/I&O's: Vital Signs Temp Pulse Resp BP Pulse Ox 97.1 F L 62 18 103/53 L 98 07/10/20 12:00 07/10/20 12:00 07/10/20 12:00 07/10/20 12:00 07/10/20 12:00 Oxygen Delivery Method Room Air Weight: 185 lb 10.067 oz Body Mass Index (BMI) 31.8 Intake and Output for Last 24 Hours 07/08/20 07/09/20 07/10/20 23:59 23:59 23:59 Intake Total 860 / 860 1400 / 1400 400 / 400 Balance 860 / 860 1400 / 1400 400 / 400 General: Alert, Oriented x3, Cooperative, No apparent distress HEENT: Atraumatic, PERRLA, EOMI, Normocephalic Oral: Moist Mucosa Neck: Supple, No JVD Lungs: Clear to auscultation, Normal air movement, No rhonchi, No wheeze, No rales Cardiovascular: Regular rate, Regular Rhythm, Normal S1, Normal S2, No murmurs Abdomen: Soft, Non Tender, Non-Distended, No Hepato-splenomegaly Extremities: No edema, Capillary Refill Less than 3 Seconds Skin: No rashes, No breakdown Neurological: Neuro grossly intact, Sensory exam intact to light touch and pain Psych/Mental Status: Normal Affect, Appropriate Current Medications Acetaminophen (Tylenol) 500 mg PO Q4H PRN PRN PRN Reason: Temp > 100.4 F Al Hydroxide/Mg Hydroxide (Mylanta Ii) 30 ml PO Q6H PRN PRN PRN Reason: dyspesia Albuterol Sulfate (Ventolin Aerosols) 2.5 mg INHALATION Q2H PRN PRN PRN Reason: Dyspnea, wheezing Bisacodyl (Dulcolax) 10 mg RECTAL DAILY PRN PRN Reason: Constipation Clonidine (Catapres) 0.1 mg PO Q8H PRN PRN PRN Reason: RESTLESSNESS Last Admin: 07/09/20 03:43 Dose: 0.1 mg Documented by: Dicyclomine HCl (Bentyl) 20 mg PO Q6H PRN PRN PRN Reason: Abdominal Discomfort Last Admin: 07/09/20 03:42 Dose: 20 mg Documented by: Famotidine (Pepcid) 20 mg PO BID RUPA Last Admin: 07/10/20 10:15 Dose: 20 mg Documented by: Gabapentin (Neurontin) 300 mg PO Q8H PRN PRN PRN Reason: moderate to severe anxiety Last Admin: 07/10/20 10:15 Dose: 300 mg Documented by: Hydroxyzine Pamoate (Vistaril Pamoate Capsule) 50 mg PO Q6H PRN PRN PRN Reason: mild anxiety Last Admin: 07/09/20 03:43 Dose: 50 mg Documented by: Ibuprofen (Motrin) 600 mg PO Q8H PRN PRN PRN Reason: Pain Score 1-1010 Last Admin: 07/09/20 15:14 Dose: 600 mg Documented by: Loperamide HCl (Imodium) 2 mg PO Q4H PRN PRN PRN Reason: LOOSE STOOLS Methocarbamol (Methocarbamol) 1,500 mg PO Q6H PRN PRN PRN Reason: MUSCLE SPASM Last Admin: 07/09/20 20:39 Dose: 1,500 mg Documented by: Ondansetron HCl (Zofran Odt) 8 mg PO Q8H PRN PRN PRN Reason: NAUSEA Last Admin: 07/08/20 20:56 Dose: 8 mg Documented by: Senna (Senokot) 2 tablet PO QHS PRN PRN PRN Reason: Constipation Trazodone HCl (Desyrel) 100 mg PO QHS PRN PRN PRN Reason: INSOMNIA Last Admin: 07/09/20 20:39 Dose: 100 mg Documented by: STROKE Vital Signs/Narrative: Vital Signs Temp Pulse Resp BP Pulse Ox 07/10/20 12:00 97.1 F L 62 18 103/53 L 98 Medical Necessity - Tobacco Use Smoking Status: Never smoker Tobacco Use: Non-smoker Assessment/Plan All Active Problems Opiate withdrawal (Acute) 1. Acute opiate withdrawal -Continue with the opiate withdrawal protocol -Acute pulmonary she will be discharged tomorrow to an inpatient 180 facility at 10 AM 2. Elevated liver enzymes -Hepatitis C screen was positive therefore she will need to follow-up with gastroenterology as an outpatient -Advised that if she does not discontinue her IV drug use and she would not qualify for treatment for her hep C DVT: Low risk Inpatient E&M: 08741 Subs Hosp L2
[2020-07-10 16:44] VITALS: BP 119/58; PULSE 62; RESP 18; TEMP 36.8; O2SAT 98
[2020-07-10 21:33] VITALS: BP 122/60; PULSE 66; RESP 14; TEMP 36.8; O2SAT 98
[2020-07-10] MEDS: Methocarbamol 750 MG Tablet 1500 MG PO (21:38)
[2020-07-10] MEDS: traZODone 100 MG Tablet PO (21:38)
[2020-07-10] MEDS: Ibuprofen 600 MG Tablet PO (21:38)
[2020-07-11 06:05] VITALS: BP 110/49; PULSE 54; RESP 14; TEMP 36.5; O2SAT 96
--- NOTE | 2020-07-11 07:11 | DS.PCM_ITS ---
Discharge Date and Diagnosis - Problem List Patient Problems: Active and Suspected Problems Opiate withdrawal (Acute) Date of Admission: 07/06/20 Date of Discharge: 07/11/20 - Primary Discharge Diagnosis Acute Problems: Active Problems Opiate withdrawal (Acute) - Secondary Discharge Diagnosis Chronic Problems: Chronic Problems Opiate abuse, continuous (Chronic) Methamphetamine abuse (Chronic) Anxiety and depression (Chronic) Obesity (BMI 30.0-34.9) (Chronic) Elevated liver enzymes (Chronic) Hospital Course and Treatment Operations: None Procedures: None Summary of Care Provided: Per HPI: The patient is a 35 y/o F w/ PMHx: Polysubstance abuse (Heroine, Fentan yl, Methamphetamines only but in the past other substances, IV drug abuse x1 year, indicates that she may have hepatitis C or suspects that she may), Anxiety and Depression, Obesity who presents to the [facility] ED on 07/06/20 w/ noted opiate withdrawal onset starting on day of ED presentation following last dose the day prior with abdominal pain/cramping with associated nausea and dry heaves, generalized body aches and pains, rhinorrhea, headaches, generalized chills and restlessness coupled with fatigue, mild diaphoresis. Patient interested in attaining clean status. Patient has been using amphetamines and opiates for several years and notes in the past she was using with her significant other with whom she has 3 children however he became clean and currently has custody. She noted she had been sober for approximately 100 days and was granted visitation but unfortunately did not get this visit per her report and decided to use again. She is interested in rehab and ongoing clean status to be able to see her children on a regular basis. Work-up in the ED included T 97.5, heart rate 80, BP 125/68, respiratory rate 16, 99% on room air, unremarkable CBC, unremarkable coags, CMP with chloride 111, AST/ALT 104/158, alk phos 91, serum negative, urine drug screen with positive amphetamines, ethyl alcohol level less than 3. In the ED patient ministered Zofran and Tylenol therapy. Hospital Course: 1. Acute opiate withdrawal/elevated liver [id number] female has polysubstance abuse issues with heroin, methamphetamines presents with acute op iate withdrawal. She wants to go through detox and rehab. He is to be discharged today to an inpatient program for rehab. Of note she presented with elevated liver enzymes and was found to have hepatitis C positive screen. I discussed with her that until she quits using IV drug use she cannot get treatment for hepatitis C. I discussed discharge plan with her today and she expressed understanding the risk benefits of going to rehab today. Patient Problems: Active and Suspected Problems Opiate withdrawal (Acute) - Physical Exam Vitals/I&O's: Vital Signs Temp Pulse Resp BP Pulse Ox 97.7 F L 54 L 14 110/49 L 96 07/11/20 06:05 07/11/20 06:05 07/11/20 06:05 07/11/20 06:05 07/11/20 06:05 Oxygen Delivery Method Room Air Weight: 185 lb 10.067 oz Body Mass Index (BMI) 31.8 Intake and Output for Last 24 Hours 07/09/20 07/10/20 07/11/20 23:59 23:59 23:59 Intake Total 1400 / 1400 1750 / 1750 500 / 500 Balance 1400 / 1400 1750 / 1750 500 / 500 General: Alert, Oriented x3, Cooperative, No apparent distress HEENT: Atraumatic, PERRLA, EOMI, Normocephalic Oral: Moist Mucosa Neck: Supple, No JVD Lungs: Clear to auscultation, Normal air movement, No rhonchi, No wheeze, No rales Cardiovascular: Regular rate, Regular Rhythm, Normal S1, Normal S2, No murmurs Abdomen: Soft, Non Tender, Non-Distended, No Hepato-splenomegaly Extremities: No edema, Capillary Refill Less than 3 Seconds Skin: No rashes, No breakdown Neurological: Neuro grossly intact, Sensory exam intact to light touch and pain Psych/Mental Status: Normal Affect, Appropriate Current Medications Acetaminophen (Tylenol) 500 mg PO Q4H PRN PRN PRN Reason: Temp > 100.4 F Al Hydroxide/Mg Hydroxide (Mylanta Ii) 30 ml PO Q6H PRN PRN PRN Reason: dyspesia Albuterol Sulfate (Ventolin Aerosols) 2.5 mg INHALATION Q2H PRN PRN PRN Reason: Dyspnea, wheezing Bisacodyl (Dulcolax) 10 mg RECTAL DAILY PRN PRN Reason: Constipation Clonidine (Catapres) 0.1 mg PO Q8H PRN PRN PRN Reason: RESTLESSNESS Last Admin: 07/09/20 03:43 Dose: 0.1 mg Documented by: Dicyclomine HCl (Bentyl) 20 mg PO Q6H PRN PRN PRN Reason: Abdominal Discomfort Last Admin: 07/09/20 03:42 Dose: 20 mg Documented by: Famotidine (Pepcid) 20 mg PO BID RUPA Last Admin: 07/10/20 21:38 Dose: 20 mg Documented by: Gabapentin (Neurontin) 300 mg PO Q8H PRN PRN PRN Reason: moderate to severe anxiety Last Admin: 07/10/20 21:38 Dose: 300 mg Documented by: Hydroxyzine Pamoate (Vistaril Pamoate Capsule) 50 mg PO Q6H PRN PRN PRN Reason: mild anxiety Last Admin: 07/09/20 03:43 Dose: 50 mg Documented by: Ibuprofen (Motrin) 600 mg PO Q8H PRN PRN PRN Reason: Pain Score 1-10/10 Last Admin: 07/10/20 21:38 Dose: 600 mg Documented by: Loperamide HCl (Imodium) 2 mg PO Q4H PRN PRN PRN Reason: LOOSE STOOLS Methocarbamol (Methocarbamol) 1,500 mg PO Q6H PRN PRN PRN Reason: MUSCLE SPASM Last Admin: 07/10/20 21:38 Dose: 1,500 mg Documented by: Ondansetron HCl (Zofran Odt) 8 mg PO Q8H PRN PRN PRN Reason: NAUSEA Last Admin: 07/08/20 20:56 Dose: 8 mg Documented by: Senna (Senokot) 2 tablet PO QHS PRN PRN PRN Reason: Constipation Trazodone HCl (Desyrel) 100 mg PO QHS PRN PRN PRN Reason: INSOMNIA Last Admin: 07/10/20 21:38 Dose: 100 mg Documented by: Discharge Activity: Return to Normal Activity Call your doctor if you observe: Fever of 101 or Higher, Shortness of breath, Dizziness, Fainting spells, Swelling in the ankles, Chest pain, Increased palpitations (irregular heartbeat) Home Medications: Medications to take at Discharge NK 07/06/20 Primary Care Physician: [facility] Doctor,Out of [NON-STAFF] - Please follow up with your Primary Care Physician in: 3-5 days Please Follow Up With: Rehab, inpt or outpt Disposition: Home Minutes spent on discharge:: 35 Patient Condition:: Stable Medical Necessity - Tobacco Use Smoking Status: Never smoker Tobacco Use: Non-smoker Meaningful Use Info Meaningful Use Diagnoses (Choose all that apply): None applicable Inpatient E&M: 32021 Disch Hosp
[2020-07-11 09:40] VITALS: BP 103/52; PULSE 67; RESP 16; TEMP 36.9; O2SAT 100
[2020-07-11] MEDS: Gabapentin 300 MG Capsule PO (09:43)
[2020-07-11] MEDS: Famotidine 20 MG Tablet PO (09:43)
[2020-07-11] MEDS: hydrOXYzine PAM 25 MG Capsule 50 MG PO (09:43)
--- NOTE | 2020-07-11 10:29 | ADDICTION ---
This typewriter mechanic met with patient in her room to finalize discharge plans. Patient will directly admit into the [facility]'s Residential Treatment Facility for Residential treatment upon discharge from [facility]. Transportation has been coordinated with [facility]. Concrete Paving Supervisor plans to pick patient up at 10am to transport to [facility] to begin Residential admission. Patient amiable to this plan.
== END 2020-07-11 10:56 ==
LOC: ED 18:14 → MS3 07-07 03:34
PROVIDERS: Admitting Provider Family Medicine; Emergency Provider Emergency Medicine; Visit Provider Family Medicine
DX: F11.23 Opioid dependence with withdrawal (principal); F15.10 Other stimulant abuse, uncomplicated; E66.9 Obesity, unspecified; R74.8 Abnormal levels of other serum enzymes; Z68.31 Body mass index [BMI] 31.0-31.9, adult; F32.9 Major depressive disorder, single episode, unspecified; F41.9 Anxiety disorder, unspecified
CPT/HCPCS: 36415; 80053; 80307; 80320; 84703; 85025; 85610; 86703; 86706; 86709; 86803; 87340; 99284; H0012; J7120; A4216; G0480

== ENCOUNTER → 2020-08-30 15:58 | Outpatient (CLI) | payer MEDICAID, SELFPAY ==
[2020-08-30 14:58] VITALS: BMI 37.4
[2020-08-30 17:46] LABS: Free T3 2.8 pg/mL (2.18-3.98); T4 Free Direct 1.03 ng/dL (0.76-1.46)
[2020-09-05 16:08] LABS: Comment 3 (.); HCV Quant. RNA PCR 4500 IU/mL (.)
[2020-09-05 16:40] LABS: HCV log 10 3.653 (.)
== END ==
PROVIDERS: Referring Provider Internal Medicine; Visit Provider Internal Medicine
DX: F32.9 Major depressive disorder, single episode, unspecified (principal); F41.9 Anxiety disorder, unspecified; B19.20 Unspecified viral hepatitis C without hepatic coma; E66.9 Obesity, unspecified; F11.10 Opioid abuse, uncomplicated; F15.10 Other stimulant abuse, uncomplicated; R74.8 Abnormal levels of other serum enzymes
CPT/HCPCS: 36415; 84439; 84443; 84481; 87522; 87902

== ENCOUNTER → 2020-09-14 09:51 | Outpatient (CLI) | payer MEDICAID, SELFPAY ==
[2020-08-30 14:58] VITALS: BMI 37.4
--- NOTE | 2020-09-14 09:59 | US_ITS ---
STUDY: ABDOMINAL ULTRASOUND - RIGHT UPPER QUADRANT REASON FOR VISIT: Female, 35 years old HEP C TECHNIQUE: Ultrasound evaluation of the right upper quadrant was performed with real-time and static alicia-scale imaging. TECHNICAL QUALITY: Adequate. COMPARISON: None. FINDINGS: Liver: The liver measures 16.9 cm. There is increased echogenicity consistent with fatty infiltration. The bile ducts are within normal limits. There is hepatic color flow. The direction of portal flow is hepatopetal. There is no demonstrated mass lesion. Gallbladder: The patient is status post cholecystectomy. Common Bile Duct (C.B.D.): The common bile duct measures 3.3 mm. Pancreas: Normal size of the head, body and tail of the pancreas. There is normal echogenicity of the pancreas. There is no demonstrated pancreatic mass or cyst. Right Kidney: Normal size of the right kidney. The right kidney measures 10.8 cm x 6.3 cm x 4.9 cm. Normal renal cortex. The right cortex measures 1.5 cm. There is no demonstrated renal mass or cyst. There is no right hydronephrosis. US/Liver IMPRESSION: Fatty infiltration of the liver. Electronically Signed: Brian Osullivan, at 10:51 EST , Service support ,
== END ==
PROVIDERS: PCP Internal Medicine; Referring Provider Internal Medicine; Visit Provider Internal Medicine
DX: B19.20 Unspecified viral hepatitis C without hepatic coma (principal); R74.8 Abnormal levels of other serum enzymes; F11.10 Opioid abuse, uncomplicated; F15.10 Other stimulant abuse, uncomplicated; F32.9 Major depressive disorder, single episode, unspecified; F41.9 Anxiety disorder, unspecified; E66.9 Obesity, unspecified
CPT/HCPCS: 76705